=== PATIENT | female | born 1940 | race Caucasian/White ===

== ENCOUNTER 2018-01-29 13:52 | Inpatient (IN) | payer MEDICARE, BC, SELFPAY ==
[2018-01-29 13:36] VITALS: BP 116/82; PULSE 84; RESP 22; TEMP 36.3; O2SAT 94; BMI 17.7
--- NOTE | 2018-01-29 13:38 | HMH.EDFALL ---
ED Disposition Clinical Impression: Urinary tract infection with pyuria, Elevated lactic acid level Fall Qualifiers: Encounter type: initial encounter Qualified Code(s): W19.XXXA - Unspecified fall, initial encounter Elevated white blood cell count Qualifiers: Leukocytosis type: other Qualified Code(s): D72.828 - Other elevated white blood cell count Disposition: Admitted as Observation Condition on Discharge: Fair - Critical Care Critical Care Time: Yes Attestation: On , the high probability of a clinically significant, sudden or life threatening deterioration of the following system(s) required my full and direct attention, intervention and personal management. The time I documented below is in addition to time spent performing reported procedures but includes the following listed in this critical care notation. Total Critical Care Time: 30 Vital system(s) involved:: Shock (Septic) My critical care processes included: Assessment & monitoring of V/S, Initial and Re-exams, Data Review/Interpretation, Coordinating Care, Medication Orders and management, Documentation Medical Decision Making - Medical Records Medical records reviewed: Yes: I reviewed the patient's medical records. - Dario Inquiry Pt receiving controlled substance: No Vital Signs: 01/29/18 13:36 Temperature 97.3 F L Temperature Source Temporal Artery Scan Pulse Rate [Left Brachial] 84 Respiratory Rate 22 Blood Pressure [Left Arm] 116/82 Blood Pressure Mean [Left Arm] 93 Blood Pressure Source [Left Arm] Automatic Cuff Blood Pressure Position [Left Arm] Supine 02 Sat by Pulse Oximetry 94 L Oxygen Delivery Method Room Air - Lab Data Lab results reviewed: Yes: I reviewed the patient's lab results. Lab Results 01/29/18 14:55: WBC 21.7 H*, RBC 4.53, Hgb 14.1, Hct 45.8, MCV 101.0 H, MCH 31.1, MCHC 30.8 L, RDW 12.7, Plt Count 205, MPV 11.0 H, Neut % (Auto) 88.3 H, Lymph % (Auto) 6.7 L, [place] % (Auto) 4.3, Eos % (Auto) 0.6, Baso % (Auto) 0.1, Neut # (Auto) 19.1 H, Lymph # (Auto) 1.5, [place] # (Auto) 0.9, Eos # (Auto) 0.1, Baso # (Auto) 0.0, Total Counted 100, Neutrophils % (Manual) 90 H, Lymphocytes % (Manual) 5 L, Atypical Lymphs % 2.0, Monocytes % (Manual) 3, Platelet Estimate Normal, RBC Morphology Normal 01/29/18 14:55: Sodium 163 H*, Potassium 3.4 L, Chloride 125 H, Carbon Dioxide 29, Anion Gap 12.4, BUN 50 H, Creatinine 1.39 H, Estimated Creat Clear 26, Estimated GFR 37 L, Est GFR ( Amer) 44 L, Glucose 201 H, Calcium 10.0, Total Bilirubin 0.4, AST 24, ALT 48, Alkaline Phosphatase 104, Troponin I 0.02, Total Protein 7.9, Albumin 2.9 L, Globulin 5.0 H, Albumin/Globulin Ratio 0.6 L 01/29/18 15:35: Lactic Acid 3.4 H 01/29/18 15:35: Influenza Type A Ag Negative, Influenza Type B Ag Negative, Group A Strep Rapid Negative 01/29/18 16:10: Urine Color Yellow, Urine Appearance Turbid, Urine pH 5.5, Ur Specific [place] 1.025, Urine Protein Trace, Urine Glucose (UA) Negative, Urine Ketones Negative, Urine Blood Trace-i, Urine Nitrate Negative, Urine Bilirubin Negative, Urine Urobilinogen 0.2, Ur Leukocyte Esterase 1+ A, Urine RBC Occasional, Urine WBC 20-50, Ur Squamous Epith Cells Occasional, Urine Bacteria 4+ Result diagrams: 01/29/18 14:55 01/29/18 14:55 Orders (Tests/Meds): ED MEDICATIONS Generic Name Dose Route Start Last Admin Trade Name Freq PRN Reason Stop Dose Admin Ceftriaxone Sodium 1 gm/ 50 mls @ 100 mls/hr 01/29/18 16:15 01/29/18 16:19 Sodium Chloride IV 02/12/18 16:14 100 mls/hr Q24H SHERRI Administration Protocol Discontinued Medications Generic Name Dose Route Start Last Admin Trade Name Freq PRN Reason Stop Dose Admin Ceftriaxone Sodium 1 gm/ 50 mls @ 100 mls/hr 01/29/18 16:01 Sodium Chloride IV 01/29/18 16:30 ONCE ONE Protocol Lorazepam 0.5 mg 01/29/18 14:04 01/29/18 14:22 Ativan 2mg/Ml Vial IM 01/29/18 14:05 0.5 mg ONCE ONE Administration ORDERS Category Date
[2018-01-29 13:41] VITALS: BMI 17.8
--- NOTE | 2018-01-29 13:42 | CT_ITS ---
CT cervical spine wo con INDICATION: Neck pain following injury, posttraumatic pain ITS.REASON: fall ORDERING PHYSICIAN: Eulalia Contreras MD PATIENT AGE: 77 years COMPARISON: None TECHNIQUE: Axial images are obtained without contrast. Sagittal and coronal reformatted images are reviewed as well. All CT scans at the facility use one or more dose reduction, viz: automated exposure control; ma/kV adjustment per patient size (including targeted exams where dose is matched to indication; i.e. head); or iterative reconstruction technique. FINDINGS: Motion artifact obscures fine detail. Motion artifact is present despite repeating the exam. There is normal alignment. No displaced fractures or dislocation evident. Multilevel cervical spondylosis with degenerative disc disease and facet arthritic changes are present. Moderate facet hypertrophic changes are present on the left at C3-C4. There is 3 mm anterolisthesis of C3. Facet arthritic changes at C4-C5 greater on the left at C5-C6 greater on the left with bilateral foraminal narrowing at C5-C6. Endplate osteophytes with disc space narrowing and foraminal narrowing present at C6-C7 with bony canal narrowing as well with broad-based origin disc osteophyte complex. Lung apices are clear. No prevertebral soft tissue swelling. There is fluid level in the left maxillary sinus IMPRESSION: The exam is limited by motion artifact. Multilevel cervical spondylosis. Please see above for detailed description at each level. No definite acute fracture apparent
--- NOTE | 2018-01-29 13:42 | ED_ITS ---
ED Disposition Clinical Impression: Urinary tract infection with pyuria, Elevated lactic acid level Fall Qualifiers: Encounter type: initial encounter Qualified Code(s): W19.XXXA - Unspecified fall, initial encounter Elevated white blood cell count Qualifiers: Leukocytosis type: other Qualified Code(s): D72.828 - Other elevated white blood cell count Disposition: Admitted as Observation Condition on Discharge: Fair - Critical Care Critical Care Time: Yes Attestation: On , the high probability of a clinically significant, sudden or life threatening deterioration of the following system(s) required my full and direct attention, intervention and personal management. The time I documented below is in addition to time spent performing reported procedures but includes the following listed in this critical care notation. Total Critical Care Time: 30 Vital system(s) involved:: Shock (Septic) My critical care processes included: Assessment & monitoring of V/S, Initial and Re-exams, Data Review/Interpretation, Coordinating Care, Medication Orders and management, Documentation Medical Decision Making - Medical Records Medical records reviewed: Yes: I reviewed the patient's medical records. - Dario Inquiry Pt receiving controlled substance: No Vital Signs: 01/29/18 13:36 Temperature 97.3 F L Temperature Source Temporal Artery Scan Pulse Rate [Left Brachial] 84 Respiratory Rate 22 Blood Pressure [Left Arm] 116/82 Blood Pressure Mean [Left Arm] 93 Blood Pressure Source [Left Arm] Automatic Cuff Blood Pressure Position [Left Arm] Supine 02 Sat by Pulse Oximetry 94 L Oxygen Delivery Method Room Air - Lab Data Lab results reviewed: Yes: I reviewed the patient's lab results. Lab Results 01/29/18 14:55: WBC 21.7 H*, RBC 4.53, Hgb 14.1, Hct 45.8, MCV 101.0 H, MCH 31.1 , MCHC 30.8 L, RDW 12.7, Plt Count 205, MPV 11.0 H, Neut % (Auto) 88.3 H, Lymph % (Auto) 6.7 L, [place] % (Auto) 4.3, Eos % (Auto) 0.6, Baso % (Auto) 0.1, Neut # ( Auto) 19.1 H, Lymph # (Auto) 1.5, [place] # (Auto) 0.9, Eos # (Auto) 0.1, Baso # ( Auto) 0.0, Total Counted 100, Neutrophils % (Manual) 90 H, Lymphocytes % (Manual ) 5 L, Atypical Lymphs % 2.0, Monocytes % (Manual) 3, Platelet Estimate Normal, RBC Morphology Normal 01/29/18 14:55: Sodium 163 H*, Potassium 3.4 L, Chloride 125 H, Carbon Dioxide 29, Anion Gap 12.4, BUN 50 H, Creatinine 1.39 H, Estimated Creat Clear 26, Estimated GFR 37 L, Est GFR ( Amer) 44 L, Glucose 201 H, Calcium 10.0, Total Bilirubin 0.4, AST 24, ALT 48, Alkaline Phosphatase 104, Troponin I 0.02, Total Protein 7.9, Albumin 2.9 L, Globulin 5.0 H, Albumin/Globulin Ratio 0.6 L 01/29/18 15:35: Lactic Acid 3.4 H 01/29/18 15:35: Influenza Type A Ag Negative, Influenza Type B Ag Negative, Group A Strep Rapid Negative 01/29/18 16:10: Urine Color Yellow, Urine Appearance Turbid, Urine pH 5.5, Ur Specific [place] 1.025, Urine Protein Trace, Urine Glucose (UA) Negative, Urine Ketones Negative, Urine Blood Trace-i, Urine Nitrate Negative, Urine Bilirubin Negative, Urine Urobilinogen 0.2, Ur Leukocyte Esterase 1+ A, Urine RBC Occasional, Urine WBC 20-50, Ur Squamous Epith Cells Occasional, Urine Bacteria 4+ Result diagrams: 01/29/18 14:55 01/29/18 14:55 Orders (Tests/Meds): ED MEDICATIONS Generic Name Dose Route Start Last Admin Trade Name Freq PRN Reason Stop Dose Admin Ceftriaxone Sodium 1 gm/ 50 mls @ 100 mls/hr 01/29/18 16:15 01/29/18 16:19 S
--- NOTE | 2018-01-29 13:42 | CT_ITS ---
CT head/brain wo con HISTORY: ITS.REASON: fall ORDERING PHYSICIAN: Eulalia Contreras MD PATIENT AGE: 77 years COMPARISON: None TECHNIQUE: Helical acquisition was obtained as patient could not hold still for regular axial images. Axial images obtained without contrast. Brain and bone windows reviewed. All CT scans at the facility use one or more dose reduction, viz: automated exposure control; ma/kV adjustment per patient size (including targeted exams where dose is matched to indication; i.e. head); or iterative reconstruction technique. FINDINGS: No midline shift, mass effect, intracranial hemorrhage, hydrocephalus, or extra-axial fluid collection is evident. There is generalized atrophy. Periventricular ischemic gliotic changes noted. There is a lacunar infarction of the subinsular region on the left. The calvarium has an unremarkable appearance. No mastoid effusion. Mucosal thickening involves the ethmoid sinuses sphenoid sinus and maxillary sinuses. IMPRESSION: 1. No acute intracranial findings. 2. Limited exam secondary to motion artifact. 3. Sinus disease.
--- NOTE | 2018-01-29 13:44 | XR_ITS ---
XR chest AP HISTORY: Pain following injury ITS.REASON: fall ORDERING PHYSICIAN: Eulalia Contreras MD FINDINGS: Unremarkable heart size. Coronary artery calcifications are present.. Right hemidiaphragm is elevated with bowel interposition on the right. Lungs are clear bilaterally. No acute bony anomalies. IMPRESSION: No acute finding
[2018-01-29 15:05] LABS: Basophils % 0.1 % (0.1-2.0); Eosinophils # 0.1 K/mm3 (0.0-0.4); Eosinophils % 0.6 % (0.1-12.0); Hematocrit 45.8 % (37.0-47.0); Hemoglobin 14.1 g/dL (12.2-16.2); Lymphocytes # 1.5 K/mm3 (0.7-4.5); Lymphocytes % 6.7 K/mm3 (10-50); Mean Corpuscular HGB Conc 30.8 g/dL (31.8-35.4); Mean Corpuscular Hemoglobin 31.1 pg (27.0-31.2); Monocytes # 0.9 K/mm3 (0.1-1.0); Monocytes % 4.3 % (1.7-9.3); Neutrophils # 19.1 K/mm3 (1.8-7.8); Neutrophils % 88.3 % (37.0-80.0); Platelet Count 205 K/mm3 (142-424); Red Blood Count 4.53 M/mm3 (4.20-5.40); Red Cell Distribution Width 12.7 % (11.5-17.5); White Blood Count 21.7 K/mm3 (4.8-10.8)
[2018-01-29 15:06] LABS: MANUAL DIFFERENTIAL MANUAL DIFFERENTIAL (MANUAL DIFF)
[2018-01-29 15:17] LABS: Alanine Aminotransferase 48 U/L (12-78); Albumin Level 2.9 gm/dL (3.4-5.0); Albumin/Globulin Ratio 0.6 (1.1-1.8); Alkaline Phosphatase 104 U/L (46-116); Anion Gap 12.4 mEq/L (5-15); Aspartate Amino Transferase 24 U/L (15-37); Bilirubin,Total 0.4 mg/dL (0.2-1.0); Blood Urea Nitrogen 50 mg/dL (7-18); Carbon Dioxide 29 mmol/L (21.0-32.0); Chloride 125 mmol/L (98-107); Creatinine Clearance Estimated 26 mL/min (0-300); Creatinine,Serum 1.39 mg/dL (0.55-1.02); Estimated Glomerular Filt Rate 37 ml/min (>60); GFR (African American) 44 ML/MIN (>60); Glucose 201 mg/dL (74-106); Potassium 3.4 mmoL/L (3.5-5.1); Total Protein,Serum 7.9 gm/dL (6.4-8.2); Troponin I 0.02 ng/ml (0.00-0.06)
[2018-01-29 15:20] LABS: Lymphocytes % 5 % (10-50); Monocytes % 3 % (2-9); Neutrophils % 90 % (42-76); Platelet Estimate Normal; RBC Morphology Normal; Total Cells Counted 100
[2018-01-29 15:21] LABS: Sodium 163 mmol/L (136-145)
[2018-01-29 15:47] LABS: Strep Scrn Group A (Rapid) Negative (Negative)
[2018-01-29 15:53] LABS: Lactic Acid 3.4 mmol/L (0.4-2.0); Reflex Lactic Add Lactic Reflex
[2018-01-29 16:16] LABS: Microscopic, Urine URINE MICROSCOPIC (MICROSCOPIC)
[2018-01-29 16:18] LABS: Appearance,Urine TURBID (Clear); Bilirubin,Urine Negative (Negative); Blood, Urine TRACE-I (Negative); Color,Urine YELLOW (Yellow); Glucose,Urine (UA) Negative (Negative); Ketones,Urine Negative (Negative); Leukocyte Esterase,Urine 1+ (Negative); Nitrate,Urine Negative (Negative); PH,Urine 5.5 (5.0-8.5); Protein,Urine TRACE (Negative); Specific Gravity, Urine 1.025 (1.005-1.030); Urobilinogen,Urine 0.2 EU/dl (0.2)
[2018-01-29 16:26] LABS: Bacteria,Urine 4+ /lpf; RBC,Urine Occasional #/hpf (0-3); Squamous Epithelial Cell,Urine Occasional #/hpf (0-5); WBC,Urine 20-50 #/hpf (0-3)
[2018-01-29 17:26] VITALS: BMI 22.6
[2018-01-29 17:30] VITALS: BP 115/55; PULSE 89; RESP 22; TEMP 36.6; O2SAT 96
[2018-01-29 17:43] VITALS: BP 134/74; PULSE 106; RESP 20; TEMP 36.8; O2SAT 97
[2018-01-29 17:51] VITALS: O2SAT 96
[2018-01-29 20:00] VITALS: BP 116/64; PULSE 99; RESP 18; TEMP 36.4; O2SAT 97
[2018-01-29 20:10] LABS: Lactic Acid Follow Up (RFLX 1) 2.5 (0.4-2.0)
[2018-01-29 21:51] LABS: Reflex Lactic (2 hrs) Add Lactic Reflex
[2018-01-29 22:21] LABS: Lactic Acid Follow up (RFLX 2) 2.7 (0.4-2.0)
--- NOTE | 2018-01-29 23:28 | PC.NURSE ---
Spoke with staff at [place] [facility] concerning pt's adl's. 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 If care is explained as given and told what is going on pt will respond better. Our staff has been made aware.
--- NOTE | 2018-01-30 03:49 | PC.NURSE ---
Pt can be aggressive if surprised or if care is not explained. Dr Murillo ordered ns at 50ml/hr in earlier shift. F/C patent and draining. Pt rested well following bath with nothing acute to report.
[2018-01-30 04:00] VITALS: BP 114/87; PULSE 87; RESP 16; TEMP 36.6; O2SAT 95
[2018-01-30 06:14] LABS: Basophils % 0.2 % (0.1-2.0); Eosinophils % 0.1 % (0.1-12.0); Hemoglobin 14.8 g/dL (12.2-16.2); Lymphocytes # 1.6 K/mm3 (0.7-4.5); Lymphocytes % 10.1 K/mm3 (10-50); Mean Corpuscular HGB Conc 30.9 g/dL (31.8-35.4); Mean Corpuscular Hemoglobin 31.6 pg (27.0-31.2); Mean Corpuscular Volume 102.4 fl (81-99); Mean Platelet Volume 11.9 fl (7.4-10.4); Monocytes # 1.1 K/mm3 (0.1-1.0); Neutrophils # 12.7 K/mm3 (1.8-7.8); Neutrophils % 82.6 % (37.0-80.0); Platelet Count 154 K/mm3 (142-424); Red Blood Count 4.68 M/mm3 (4.20-5.40); Red Cell Distribution Width 12.8 % (11.5-17.5); White Blood Count 15.4 K/mm3 (4.8-10.8)
[2018-01-30 06:20] LABS: MANUAL DIFFERENTIAL MANUAL DIFFERENTIAL (MANUAL DIFF)
[2018-01-30 06:28] LABS: Alanine Aminotransferase 43 U/L (12-78); Albumin Level 2.9 gm/dL (3.4-5.0); Albumin/Globulin Ratio 0.6 (1.1-1.8); Alkaline Phosphatase 102 U/L (46-116); Aspartate Amino Transferase 33 U/L (15-37); Bilirubin,Total 0.3 mg/dL (0.2-1.0); Blood Urea Nitrogen 48 mg/dL (7-18); Calcium 9.6 mg/dL (8.5-10.1); Carbon Dioxide 30 mmol/L (21.0-32.0); Globulin 4.8 gm/dl (1.3-3.2); Potassium 3.7 mmoL/L (3.5-5.1); Total Protein,Serum 7.7 gm/dL (6.4-8.2)
[2018-01-30 06:34] LABS: Creatinine Clearance Estimated 35 mL/min (0-300); Creatinine,Serum 1.14 mg/dL (0.55-1.02); Estimated Glomerular Filt Rate 46 ml/min (>60); GFR (African American) 56 ML/MIN (>60)
[2018-01-30 06:42] LABS: Anion Gap 12.7 mEq/L (5-15); Sodium 167 mmol/L (136-145)
[2018-01-30 06:43] LABS: Chloride 128 mmol/L (98-107)
[2018-01-30 06:44] LABS: Glucose 127 mg/dL (74-106)
[2018-01-30 06:49] LABS: Lymphocytes % 10 % (10-50); Monocytes % 3 % (2-9); Neutrophils % 77 % (42-76); Total Cells Counted 100
[2018-01-30 06:50] LABS: Hypersegmented Neutrophils 1+; Hypochromasia 2+; Macrocytosis 2+; Platelet Estimate Normal; Rouleaux 1+
--- NOTE | 2018-01-30 07:07 | PC.NURSE ---
Shift report given to Raulito More RN leaving pt safe and stable.
[2018-01-30 07:43] VITALS: BP 142/89; PULSE 87; RESP 18; TEMP 37.2; O2SAT 99
[2018-01-30 08:00] VITALS: O2SAT 94
--- NOTE | 2018-01-30 08:09 | HMH.HP ---
*Admission Date: 01/29/18 *Chief complaint: Lethargy/mental status change *History of present illness: 77-year-old white female, long-term resident of local [facility] who was brought to the emergency department with lethargy, mental status changes and had a fall at the long term where she apparently rolled out of bed. In the emergency department workup revealed unremarkable CT scan for age, leukocytosis, evidence of urinary tract infection and significant hyponatremia. She is admitted to hospital for IV antibiotics, correction of her hyponatremia and ongoing supportive care. Please note she is maintained a DNR status for many years. She suffers from severe dementia. [facility] History I have reviewed the patient's past medical history: Yes Medical History: Reports:: Dementia, Hyperlipidemia, Hypertension, Myocardial Infarction, Peripheral Vascular Disease Denies:: Diabetes Mellitus Type 1, Diabetes Mellitus Type 2 Other Medical History: Reports: Hypothyroidism - *Social History Smoking Status: Never smoker Alcohol Intake: never Occupational Status: retired - Psychiatric History Expresses thoughts of harming self/others: None Suicide Plan Description: No Plan Review of Systems - Review of Systems Review of systems:: unable to obtain Meds Home Medications Medication Instructions Recorded Confirmed Type Bisacodyl [Dulcolax 5mg Tablet] 2 tab PO HS 01/29/18 01/29/18 History Citalopram Hydrobromide [Celexa 1 tab PO DAILY 01/29/18 01/29/18 History 20mg Tablet] Levothyroxine Sodium 150 mcg PO DAILY 01/29/18 01/29/18 History [Levothyroxine 150mcg (0.15mg) Tab] Metoprolol Tartrate [Lopressor 12.5 mg PO BID 01/29/18 01/29/18 History 25mg tablet] Polyethylene Glycol 1000 500 gm MC DAILY 01/29/18 01/29/18 History [Polyethylene Glycol] Quetiapine Fumarate [Quetiapine 25 mg PO DAILY 01/29/18 01/29/18 History Fumarate] Quetiapine Fumarate [Quetiapine 50 mg PO HS 01/29/18 01/29/18 History Fumarate] Sennosides [Senokot 8.6mg tablet] 8.6 mg PO DAILY 01/29/18 01/29/18 History Tramadol HCl [Ultram 50mg 50 mg PO TID 03/24/18 03/24/18 History tablet] Trazodone HCl 50 mg PO HS 01/29/18 01/29/18 History Allergies Allergy/AdvReac Type Severity Reaction Status Date / Time codeine Allergy Verified 01/29/18 13:39 lovastatin Allergy Verified 01/29/18 13:39 naproxen Allergy Verified 01/29/18 13:39 Exam Vital signs and Labs for Last 24 Hours: Temp Pulse Resp BP Pulse Ox 98.9 F 87 18 142/89 99 01/30/18 07:43 01/30/18 07:43 01/30/18 07:43 01/30/18 07:43 01/30/18 07:43 Laboratory Results - last 24 hr 01/29/18 19:50: Lactic Acid Fup @ 4Hr 2.5 H 01/29/18 21:50: Lactic Acid Fup @ 2Hr 2.7 H 01/30/18 05:45: WBC 15.4 H D, RBC 4.68, Hgb 14.8, Hct 48.0 H, MCV 102.4 H, MCH 31.6 H, MCHC 30.9 L, RDW 12.8, Plt Count 154, MPV 11.9 H, Neut % (Auto) 82.6 H, Lymph % (Auto) 10.1, [place] % (Auto) 7.0, Eos % (Auto) 0.1, Baso % (Auto) 0.2, Neut # (Auto) 12.7 H, Lymph # (Auto) 1.6, [place] # (Auto) 1.1 H, Eos # (Auto) 0.0, Baso # (Auto) 0.0, Total Counted 100, Neutrophils % (Manual) 77 H, Band Neutrophils % 10.0 H, Lymphocytes % (Manual) 10, Monocytes % (Manual) 3, Hypersegmented Neuts 1+, Platelet Estimate Normal, Hypochromasia 2+, Macrocytosis 2+, [place]leaux 1+ 01/30/18 05:45: Sodium 167 H*, Potassium 3.7, Chloride 128 H, Carbon Dioxide 30, Anion Gap 12.7, BUN 48 H, Creatinine 1.14 H, Estimated Creat Clear 35, Estimated GFR 46 L, Est GFR ( Amer) 56 L D, Glucose 127 H D, Calcium 9.6, Total Bilirubin 0.3, AST 33 D, ALT 43, Alkaline Phosphatase 102, Total Protein 7.7, Albumin 2.9 L, Globulin 4.8 H, Albumin/Globulin Ratio 0.6 L I & O for Last 24 hours: Intake & Output 01/27/18 01/28/18 01/29/18 01/30/18 11:59 11:59 11:59 11:59 Intake Total 371 / 371 Output Total 300 / 300 Balance 71 / 71 Narrative: Patient is obtunded. Difficult to arouse. Responds marginally to painful stimul
--- NOTE | 2018-01-30 08:12 | P.HP_ITS ---
*Admission Date: 01/29/18 *Chief complaint: Lethargy/mental status change *History of present illness: 77-year-old white female, long-term resident of local [facility] who was brought to the emergency department with lethargy, mental status changes and had a fall at the [facility] where she apparently rolled out of bed. In the emergency department workup revealed unremarkable CT scan for age, leukocytosis, evidence of urinary tract infection and significant hyponatremia. She is admitted to hospital for IV antibiotics, correction of her hyponatremia and ongoing supportive care. Please note she is maintained a DNR status for many years. She suffers from severe dementia. [facility] History I have reviewed the patient's past medical history: Yes Medical History: Reports:: Dementia, Hyperlipidemia, Hypertension, Myocardial Infarction, Peripheral Vascular Disease Denies:: Diabetes Mellitus Type 1, Diabetes Mellitus Type 2 Other Medical History: Reports: Hypothyroidism - *Social History Smoking Status: Never smoker Alcohol Intake: never Occupational Status: retired - Psychiatric History Expresses thoughts of harming self/others: None Suicide Plan Description: No Plan Review of Systems - Review of Systems Review of systems:: unable to obtain Meds Home Medications Medication Instructions Recorded Confirmed Type Bisacodyl [Dulcolax 5mg Tablet] 2 tab PO HS 01/29/18 01/29/18 History Citalopram Hydrobromide [Celexa 1 tab PO DAILY 01/29/18 01/29/18 History 20mg Tablet] Levothyroxine Sodium 150 mcg PO DAILY 01/29/18 01/29/18 History [Levothyroxine 150mcg (0.15mg) Tab] Metoprolol Tartrate [Lopressor 12.5 mg PO BID 01/29/18 01/29/18 History 25mg tablet] Polyethylene Glycol 1000 500 gm MC DAILY 01/29/18 01/29/18 History [Polyethylene Glycol] Quetiapine Fumarate [Quetiapine 25 mg PO DAILY 01/29/18 01/29/18 History Fumarate] Quetiapine Fumarate [Quetiapine 50 mg PO HS 01/29/18 01/29/18 History Fumarate] Sennosides [Senokot 8.6mg tablet] 8.6 mg PO DAILY 01/29/18 01/29/18 History Tramadol HCl [Ultram 50mg 50 mg PO TID 03/24/18 03/24/18 History tablet] Trazodone HCl 50 mg PO HS 01/29/18 01/29/18 History Allergies Allergy/AdvReac Type Severity Reaction Status Date / Time codeine Allergy Verified 01/29/18 13:39 lovastatin Allergy Verified 01/29/18 13:39 naproxen Allergy Verified 01/29/18 13:39 Exam Vital signs and Labs for Last 24 Hours: Temp Pulse Resp BP Pulse Ox 98.9 F 87 18 142/89 99 01/30/18 07:43 01/30/18 07:43 01/30/18 07:43 01/30/18 07:43 01/30/18 07:43 Laboratory Results - last 24 hr 01/29/18 19:50: Lactic Acid Fup @ 4Hr 2.5 H 01/29/18 21:50: Lactic Acid Fup @ 2Hr 2.7 H 01/30/18 05:45: WBC 15.4 H D, RBC 4.68, Hgb 14.8, Hct 48.0 H, MCV 102.4 H, MCH 31.6 H, MCHC 30.9 L, RDW 12.8, Plt Count 154, MPV 11.9 H, Neut % (Auto) 82.6 H, Lymph % (Auto) 10.1, [place] % (Auto) 7.0, Eos % (Auto) 0.1, Baso % (Auto) 0.2, Neut # (Auto) 12.7 H, Lymph # (Auto) 1.6, [place] # (Auto) 1.1 H, Eos # (Auto) 0.0 , Baso # (Auto) 0.0, Total Counted 100, Neutrophils % (Manual) 77 H, Band Neutrophils % 10.0 H, Lymphocytes % (Manual) 10, Monocytes % (Manual) 3, Hypersegmented Neuts 1+, Platelet Estimate Normal, Hypochromasia 2+, Macrocytosis 2+, [place]le[place] 1+ 01/30/18 05:45: Sodium 167 H*, Potassium 3.7, Chloride 128 H, Carbon Dioxide 30 , Anion Gap 12.7, BUN 48
--- NOTE | 2018-01-30 08:49 | HMH.PHAVTE ---
[facility] Pharmacy VTE Monitoring - Patient Demographics Admission date: 01/29/18 Report Date: 01/30/18 Time: 08:49 Allergies/Adverse Reactions: Patient Allergies codeine Allergy (Verified 01/29/18 13:39) lovastatin Allergy (Verified 01/29/18 13:39) naproxen Allergy (Verified 01/29/18 13:39) Height: 1.57 m Weight: 56.019 kg Patient Problems: Current Active Problems Fall (Acute) Urinary tract infection with pyuria (Acute) Elevated lactic acid level (Acute) Elevated white blood cell count (Acute) Hypernatremia (Acute) - VTE Risk Labs: VTE Related Lab Results Hgb 14.8 g/dL (12.2-16.2) 01/30/18 05:45 Hct 48.0 % (37.0-47.0) H 01/30/18 05:45 Plt Count 154 K/mm3 (142-424) 01/30/18 05:45 BUN 48 mg/dL (7-18) H 01/30/18 05:45 Creatinine 1.14 mg/dL (0.55-1.02) H 01/30/18 05:45 Estimated Creat Clear 35 mL/min (0-300) 01/30/18 05:45 Was VTE Risk Assessment Performed: Yes VTE Score: 3 VTE Risk Level: Low Risk - Prophylaxis VTE Prophylaxis Ordered?: Yes Types of VTE Prophylaxis: TEDS Knee High Location of Applied Device: Bilateral Lower Extremeties - VTE Diagnosis Confirmed Treatment or plan recommended: Continue Current Treatment
[2018-01-30 15:38] VITALS: BP 138/71; PULSE 68; RESP 16; TEMP 36.4; O2SAT 95
[2018-01-30 20:00] VITALS: BP 118/86; PULSE 84; RESP 18; TEMP 37.1; O2SAT 93
[2018-01-31 04:00] VITALS: BP 123/84; PULSE 91; RESP 16; TEMP 36.4; O2SAT 97
--- NOTE | 2018-01-31 04:42 | PC.NURSE ---
Able to get pt to eat a whole popsicle during med pass. Pt slept well with no aggression toward staff. IV infusing well with no problems. Nothing acute to report and she remained safe this shift.
[2018-01-31 06:36] LABS: Basophils % 0.3 % (0.1-2.0); Eosinophils # 0.1 K/mm3 (0.0-0.4); Eosinophils % 0.8 % (0.1-12.0); Hematocrit 44.2 % (37.0-47.0); Hemoglobin 13.7 g/dL (12.2-16.2); Lymphocytes # 1.5 K/mm3 (0.7-4.5); Lymphocytes % 13.6 K/mm3 (10-50); Mean Corpuscular HGB Conc 30.9 g/dL (31.8-35.4); Mean Corpuscular Volume 100.4 fl (81-99); Mean Platelet Volume 11.4 fl (7.4-10.4); Monocytes # 0.7 K/mm3 (0.1-1.0); Monocytes % 6.7 % (1.7-9.3); Neutrophils # 8.5 K/mm3 (1.8-7.8); Neutrophils % 78.5 % (37.0-80.0); Platelet Count 192 K/mm3 (142-424); Red Cell Distribution Width 12.8 % (11.5-17.5); White Blood Count 10.8 K/mm3 (4.8-10.8)
[2018-01-31 07:02] LABS: Blood Urea Nitrogen 42 mg/dL (7-18); Carbon Dioxide 29 mmol/L (21.0-32.0); Creatinine Clearance Estimated 37 mL/min (0-300); Creatinine,Serum 1.08 mg/dL (0.55-1.02); Estimated Glomerular Filt Rate 49 ml/min (>60); GFR (African American) 59 ML/MIN (>60); Glucose 103 mg/dL (74-106); Potassium 3.3 mmoL/L (3.5-5.1)
[2018-01-31 07:07] LABS: Anion Gap 11.3 mEq/L (5-15)
[2018-01-31 07:09] LABS: Chloride 133 mmol/L (98-107); Sodium 170 mmol/L (136-145)
--- NOTE | 2018-01-31 07:12 | PC.NURSE ---
Bedside shift report given to Dara Bloom RN leaving pt safe and stable.
--- NOTE | 2018-01-31 07:36 | PC.NURSE ---
Received report from Doris Dugan RN
[2018-01-31 07:42] VITALS: BP 119/77; PULSE 86; RESP 16; TEMP 37.1; O2SAT 96
[2018-01-31 08:00] VITALS: RESP 16; O2SAT 96
--- NOTE | 2018-01-31 08:19 | P.PN_ITS ---
Internal Medicine - PN: Subj *Date: 01/31/18 *Time: 08:18 Interval history: Overnight patient became agitated, her regular antipsychotics were started this improved her situation. This morning she is awake, responsive to verbal commands, disoriented. Nursing staff reports some choking with thin liquids. Exam Vital signs and Labs for Last 24 Hours: Temp Pulse Resp BP Pulse Ox 98.8 F 86 16 119/77 96 01/31/18 07:42 01/31/18 07:42 01/31/18 07:42 01/31/18 07:42 01/31/18 07:42 Laboratory Results - last 24 hr 01/31/18 06:05: WBC 10.8 D, RBC 4.40, Hgb 13.7, Hct 44.2, MCV 100.4 H, MCH 31.0 , MCHC 30.9 L, RDW 12.8, Plt Count 192, MPV 11.4 H, Neut % (Auto) 78.5, Lymph % (Auto) 13.6, [place] % (Auto) 6.7, Eos % (Auto) 0.8, Baso % (Auto) 0.3, Neut # ( Auto) 8.5 H, Lymph # (Auto) 1.5, [place] # (Auto) 0.7, Eos # (Auto) 0.1, Baso # ( Auto) 0.0 01/31/18 06:05: Sodium 170 H*, Potassium 3.3 L, Chloride 133 H, Carbon Dioxide 29, Anion Gap 11.3, BUN 42 H, Creatinine 1.08 H, Estimated Creat Clear 37, Estimated GFR 49 L, Est GFR ( Amer) 59, Glucose 103 I & O for Last 24 hours: Intake & Output 01/28/18 01/29/18 01/30/18 01/31/18 11:59 11:59 11:59 11:59 Intake Total 371 / 371 1130 / 1130 Output Total 300 / 300 550 / 550 Balance 71 / 71 580 / 580 Weight 123 lb 8 oz Narrative: Patient is awake, somewhat responsive, lungs are clear, heart rate regular, abdomen soft, she still appears clinically dehydrated. Sodium level noted at 170. Assessment and Plan (1) Hypernatremia Current visit: Yes Status: Acute Category: Medical Code(s): E87.0 - Hyperosmolality and hypernatremia (2) Fall Current visit: Yes Status: Acute Qualifiers: Encounter type: initial encounter Qualified Code(s): W19.XXXA - Unspecified fall, initial encounter Category: Medical Code(s): W19.XXXA - Unspecified fall, initial encounter (3) Urinary tract infection with pyuria Current visit: Yes Status: Acute Category: Medical Code(s): N39.0 - Urinary tract infection, site not specified - Assessment and plan all Dx Assessment and Plan for all problems:: Continue antibiotic for UTI. Await culture results. Increase normal saline infusion rate given her dehydration with hypernatremia. Swallowing evaluation through speech therapy. Continue her baseline antipsychotic therapy.
--- NOTE | 2018-01-31 10:13 | HMH.SLDYSPHA ---
Speech & Language Evaluation Speech/Language Dysphagia Evaluation Start: 01/31/18 09:57 Freq: ONCE Status: Active Protocol: Document 01/31/18 09:57 [email or web address] (Rec: 01/31/18 10:13 JOELLEN [id number]) Dysphagia Assess/Goals/Plan Assessment Date of Evaluation: 01/31/18 Evaluation Type Initial Certification Assessment/Problems RN noted coughing with thin liquids, tired nectar thickened liquids. Does Patient Qualify for Service No Qualify/Failure Comment Ms. Chen was able to drink honey thickened liquids from open cup with assistance and eat puree food. She was unable to follow directions. Recommendations PHYSICIAN CERTIFICATION: The specified therapy services are required, authorized, and reviewed every 30 days. Diet Recommendations Dysphagia Pureed Liquid Type Recommendations Honey Consistency SL Swallow Guidelines Assist w/all meals Crush Meds Small pills w/applesauce Dysphagia Swallow Precautions/Strategies Sitting Upright (90 deg) Liquids from Cup Plan Pt/Guardian verbally ack understanding No: RN advised of dx/prognosis/goals Pt/Guardian verbally ack understanding No of/consent to tx prog G -code Required Yes G-CODES ST Current Status [id number] ST Current Status Modifier CL-At least 60% but less than 80% impaired, limited or restricted ST Goal Status [id number] ST Goal Status Modifier CL-At least 60% but less than 80% impaired, limited or restricted Education Instructions provided RN consulted and advised to keep Ms. Chen upright 30 minutes after eating/drinking. Speech & Language HPI History Present Illness Description of Patient Problem Ms. Chen' RN reports coughing on thin liquids at breakfast. She thickened liquids to a nectar consistency, but reported that she thought she may do better with honey thick . Ms. Chen was alert and cooperative. She was unable to follow commands and was disoriented during the assessment. Pt/Caregiver Concerns RN reports coughing on thin liquids at breakfast. She reports she too
--- NOTE | 2018-01-31 10:42 | SW/DCPLANNER ---
MS PEREZ PRESENTED INTO THE HOSPITAL WITH A UTI AND WEAKNESS, SHE IS A RESIDENT OF [facility] AND WILL BE RETURNING BACK THERE POST HOSPITAL STAY....DISPOSITION UNCERTAIN BUT SHOULD BE IN THE NEXT DAY OR SO...SHE CURRENTLY IS ON A MEDICAID BEDHOLD BUT IF SHE HAS A REASON TO BE SKILLED THEY WILL SKILL HER UNDER HER MEDICARE A BENEFIT...
[2018-01-31 15:43] VITALS: BMI 22.7
[2018-01-31 15:58] VITALS: BP 131/68; PULSE 78; RESP 18; TEMP 36.6; O2SAT 94
--- NOTE | 2018-01-31 17:13 | PC.NURSE ---
Pt is alert and oriented to self. Pt has not shown any nonverbal s/s of distress/pain. VSS. Afebrile. Lungs CTA. Heart rate reg. Abd soft and nontender /c active BS x4 quads. Anderson to BSD /c clear yellow urine noted in drainage bag. IV NS infusing @ 150ml/hr via (L) AC site. No s/s of infiltration noted. Bilat knee high JEZ hose in place. Bed in low position, call boyle within reach. Will continue to monitor.
--- NOTE | 2018-01-31 19:27 | PC.NURSE ---
report given to stevie
[2018-01-31 19:48] VITALS: BP 143/93; PULSE 89; RESP 18; TEMP 36.9; O2SAT 100
--- NOTE | 2018-02-01 02:23 | PC.NURSE ---
Laying in bed at this time, has been awake intermittently this shift. Talks to self, does not make any sense. Keeps placing legs over the side of bed. Frequent checks to put legs back into bed. Has pulled Swanson catheter out with balloon filled. No blood noted to urszula area. Has been incontinent since swanson has been out. A large amount of urine on disposable chux. Patient refuses placement of new swanson. Will discuss with MD on a.m rounds of plan. Lungs are clear, resp are even and non labored. Skin is warm, pink, dry and intact at this time. Strong pulses, cap refill < 3 sec. No edema. IV is patent and no s/sx of infiltration. Educated patient on using call light, unable to comprehend. Will reinforce teaching. Bed is locked in low position, side rails up x 2. Call light within reach and safety is on. Will continue to monitor.
[2018-02-01 03:44] VITALS: BP 144/67; PULSE 87; RESP 17; TEMP 36.9; O2SAT 95
[2018-02-01 06:24] LABS: Blood Urea Nitrogen 24 mg/dL (7-18); Carbon Dioxide 27 mmol/L (21.0-32.0); Creatinine,Serum 0.85 mg/dL (0.55-1.02)
[2018-02-01 06:25] LABS: Creatinine Clearance Estimated 40 mL/min (0-300); Estimated Glomerular Filt Rate 65 ml/min (>60); GFR (African American) 78 ML/MIN (>60); Glucose 90 mg/dL (74-106)
[2018-02-01 06:38] LABS: Anion Gap 8.8 mEq/L (5-15); Sodium 169 mmol/L (136-145)
[2018-02-01 06:39] LABS: Chloride 136 mmol/L (98-107); Potassium 2.8 mmoL/L (3.5-5.1)
[2018-02-01 06:44] LABS: Basophils % 0.4 % (0.1-2.0); Eosinophils # 0.2 K/mm3 (0.0-0.4); Eosinophils % 1.7 % (0.1-12.0); Hematocrit 41.1 % (37.0-47.0); Hemoglobin 12.6 g/dL (12.2-16.2); Lymphocytes # 1.6 K/mm3 (0.7-4.5); Lymphocytes % 17.1 K/mm3 (10-50); Mean Corpuscular HGB Conc 30.6 g/dL (31.8-35.4); Mean Corpuscular Hemoglobin 31.2 pg (27.0-31.2); Mean Corpuscular Volume 101.8 fl (81-99); Mean Platelet Volume 11.1 fl (7.4-10.4); Monocytes # 0.7 K/mm3 (0.1-1.0); Monocytes % 7.8 % (1.7-9.3); Neutrophils # 6.7 K/mm3 (1.8-7.8); Platelet Count 160 K/mm3 (142-424); Red Blood Count 4.04 M/mm3 (4.20-5.40); Red Cell Distribution Width 12.8 % (11.5-17.5); White Blood Count 9.1 K/mm3 (4.8-10.8)
--- NOTE | 2018-02-01 07:34 | PC.NURSE ---
REPORT GIVEN TO Charlie JOHNSTON W/C
[2018-02-01 07:39] VITALS: BP 125/35; PULSE 75; RESP 18; TEMP 36.4; O2SAT 95
--- NOTE | 2018-02-01 07:41 | PC.NURSE ---
Report received from Gladis Ny RN
--- NOTE | 2018-02-01 08:52 | HMH.ACPN2 ---
Internal Medicine - PN: Subj *Date: 02/01/18 *Time: 07:55 Interval history: Nursing staff report patient pulled swanson catheter out with bulb inflated through the night. She has been trashing about in bed and dislodged her IV, as well. No fevers. Confused at baseline. Rate and rhythm regular. No LE edema. Lung sounds clear and abdomen, Abdomen soft and non-distended Exam Vital signs and Labs for Last 24 Hours: Temp Pulse Resp BP Pulse Ox 97.6 F 75 18 125/35 95 02/01/18 07:39 02/01/18 07:39 02/01/18 07:39 02/01/18 07:39 02/01/18 07:39 Laboratory Results - last 24 hr 02/01/18 06:05: WBC 9.1, RBC 4.04 L, Hgb 12.6, Hct 41.1, MCV 101.8 H, MCH 31.2, MCHC 30.6 L, RDW 12.8, Plt Count 160, MPV 11.1 H, Neut % (Auto) 73.0, Lymph % (Auto) 17.1, [place] % (Auto) 7.8, Eos % (Auto) 1.7, Baso % (Auto) 0.4, Neut # (Auto) 6.7, Lymph # (Auto) 1.6, [place] # (Auto) 0.7, Eos # (Auto) 0.2, Baso # (Auto) 0.0 02/01/18 06:05: Sodium 169 H*, Potassium 2.8 L*, Chloride 136 H, Carbon Dioxide 27, Anion Gap 8.8, BUN 24 H D, Creatinine 0.85 D, Estimated Creat Clear 40, Estimated GFR 65, Est GFR ( Amer) 78 D, Glucose 90 I & O for Last 24 hours: Intake & Output 01/29/18 01/30/18 01/31/18 02/01/18 11:59 11:59 11:59 11:59 Intake Total 371 / 371 1130 / 1130 3603 / 3603 Output Total 300 / 300 550 / 550 575 / 575 Balance 71 / 71 580 / 580 3028 / 3028 Weight 123 lb 8 oz 123 lb 8.012 oz Assessment and Plan (1) Hypernatremia Current visit: Yes Status: Acute Category: Medical Code(s): E87.0 - Hyperosmolality and hypernatremia (2) Fall Current visit: Yes Status: Acute Qualifiers: Encounter type: initial encounter Qualified Code(s): W19.XXXA - Unspecified fall, initial encounter Category: Medical Code(s): W19.XXXA - Unspecified fall, initial encounter (3) Urinary tract infection with pyuria Current visit: Yes Status: Acute Category: Medical Code(s): N39.0 - Urinary tract infection, site not specified - Assessment and plan all Dx Assessment and Plan for all problems:: She remains hypernatremic with sodium 169 this morning. She is also hypokalemic with potassium 2.8. Add 40 MEQ KCL to NS and continue at current rate. Urine culture showed E. Coli sensitive to cephalosporins. Continue rocephin infusions. Recheck bmp in the am
--- NOTE | 2018-02-01 08:58 | P.PN_ITS ---
Internal Medicine - PN: Subj *Date: 02/01/18 *Time: 07:55 Interval history: Nursing staff report patient pulled swanson catheter out with bulb inflated through the night. She has been trashing about in bed and dislodged her IV, as well. No fevers. Confused at baseline. Rate and rhythm regular. No LE edema. Lung sounds clear and abdomen, Abdomen soft and non-distended Exam Vital signs and Labs for Last 24 Hours: Temp Pulse Resp BP Pulse Ox 97.6 F 75 18 125/35 95 02/01/18 07:39 02/01/18 07:39 02/01/18 07:39 02/01/18 07:39 02/01/18 07:39 Laboratory Results - last 24 hr 02/01/18 06:05: WBC 9.1, RBC 4.04 L, Hgb 12.6, Hct 41.1, MCV 101.8 H, MCH 31.2, MCHC 30.6 L, RDW 12.8, Plt Count 160, MPV 11.1 H, Neut % (Auto) 73.0, Lymph % ( Auto) 17.1, [place] % (Auto) 7.8, Eos % (Auto) 1.7, Baso % (Auto) 0.4, Neut # (Auto ) 6.7, Lymph # (Auto) 1.6, [place] # (Auto) 0.7, Eos # (Auto) 0.2, Baso # (Auto) 0.0 02/01/18 06:05: Sodium 169 H*, Potassium 2.8 L*, Chloride 136 H, Carbon Dioxide 27, Anion Gap 8.8, BUN 24 H D, Creatinine 0.85 D, Estimated Creat Clear 40, Estimated GFR 65, Est GFR ( Amer) 78 D, Glucose 90 I & O for Last 24 hours: Intake & Output 01/29/18 01/30/18 01/31/18 02/01/18 11:59 11:59 11:59 11:59 Intake Total 371 / 371 1130 / 1130 3603 / 3603 Output Total 300 / 300 550 / 550 575 / 575 Balance 71 / 71 580 / 580 3028 / 3028 Weight 123 lb 8 oz 123 lb 8.012 oz Assessment and Plan (1) Hypernatremia Current visit: Yes Status: Acute Category: Medical Code(s): E87.0 - Hyperosmolality and hypernatremia (2) Fall Current visit: Yes Status: Acute Qualifiers: Encounter type: initial encounter Qualified Code(s): W19.XXXA - Unspecified fall, initial encounter Category: Medical Code(s): W19.XXXA - Unspecified fall, initial encounter (3) Urinary tract infection with pyuria Current visit: Yes Status: Acute Category: Medical Code(s): N39.0 - Urinary tract infection, site not specified - Assessment and plan all Dx Assessment and Plan for all problems:: She remains hypernatremic with sodium 169 this morning. She is also hypokalemic with potassium 2.8. Add 40 MEQ KCL to NS and continue at current rate. Urine culture showed E. Coli sensitive to cephalosporins. Continue rocephin infusions. Recheck bmp in the am
[2018-02-01 15:28] VITALS: BP 106/68; PULSE 97; RESP 18; TEMP 36.6; O2SAT 97
--- NOTE | 2018-02-01 18:57 | PC.NURSE ---
Pt is alert and oriented to self. Pt has not shown any nonverbal s/s of distress/pain. VSS. Afebrile. Lungs CTA. Heart rate reg. Abd soft and nontender /c active BS x4 quads. IV NS /c 20meq KCl infusing @ 150ml/hr via (R) AC site. No s/s of infiltration noted. Bilat knee high JEZ hose in place. Bed in low position, call boyle within reach. Will continue to monitor.
[2018-02-01 20:00] VITALS: BP 154/79; PULSE 90; RESP 18; TEMP 36.8; O2SAT 97
--- NOTE | 2018-02-02 00:10 | PC.NURSE ---
Patient in bed resting at t his time. Has rest better than previous night. Has not talked to self or yelled as much. Lungs are clear, resp even and nonlabored. Skin is intact, warm and dry. Has been incontinent of urine, no bm as of now. IV is patent. No needs at this time. No other changes since previous assessment. Bed locked in low position, side rails up x 2, safety is on. Call light in reach. Encouraged patient to call out for needs. Will Reinforce teaching,
[2018-02-02 04:00] VITALS: BP 168/77; PULSE 83; RESP 16; TEMP 36.6; O2SAT 91
[2018-02-02 06:39] LABS: Anion Gap 13.3 mEq/L (5-15); Blood Urea Nitrogen 16 mg/dL (7-18); Carbon Dioxide 22 mmol/L (21.0-32.0); Creatinine Clearance Estimated 40 mL/min (0-300); Creatinine,Serum 0.73 mg/dL (0.55-1.02); Estimated Glomerular Filt Rate 77 ml/min (>60); GFR (African American) 93 ML/MIN (>60); Glucose 69 mg/dL (74-106); Potassium 3.3 mmoL/L (3.5-5.1)
[2018-02-02 06:43] LABS: Chloride 133 mmol/L (98-107); Sodium 165 mmol/L (136-145)
--- NOTE | 2018-02-02 07:05 | HMH.ACPN2 ---
Internal Medicine - PN: Subj *Date: 02/02/18 *Time: 07:05 Interval history: Is a little bit more alert. Disoriented. Ate some sinus night per the nursing staff. Exam Vital signs and Labs for Last 24 Hours: Temp Pulse Resp BP Pulse Ox 97.8 F 83 16 168/77 91 L 02/02/18 04:00 02/02/18 04:00 02/02/18 04:00 02/02/18 04:00 02/02/18 04:00 Laboratory Results - last 24 hr 02/02/18 06:05: Sodium 165 H*, Potassium 3.3 L, Chloride 133 H, Carbon Dioxide 22, Anion Gap 13.3, BUN 16 D, Creatinine 0.73, Estimated Creat Clear 40, Estimated GFR 77, Est GFR ( Amer) 93, Glucose 69 L D I & O for Last 24 hours: Intake & Output 01/30/18 01/31/18 02/01/18 02/02/18 11:59 11:59 11:59 11:59 Intake Total 3178 / 3178 Balance 3178 / 3178 Narrative: Alert, minimally responsive, disoriented. Anterior lungs are clear. Heart rate regular. Abdomen soft. Sodium noted to have improved today to 165. Seems slightly improved. Assessment and Plan (1) Hypernatremia Current visit: Yes Status: Acute Category: Medical Code(s): E87.0 - Hyperosmolality and hypernatremia (2) Fall Current visit: Yes Status: Acute Qualifiers: Encounter type: initial encounter Qualified Code(s): W19.XXXA - Unspecified fall, initial encounter Category: Medical Code(s): W19.XXXA - Unspecified fall, initial encounter (3) Urinary tract infection with pyuria Current visit: Yes Status: Acute Category: Medical Code(s): N39.0 - Urinary tract infection, site not specified (4) Hypokalemia Current visit: Yes Status: Acute Category: Medical Code(s): E87.6 - Hypokalemia Hyponatremia somewhat improved. Continue current fluid rate and normal saline to slowly dilute her hypernatremia issues. Continue replacing hypokalemia issues in the IV fluid. Continue IV antibiotics.
--- NOTE | 2018-02-02 07:21 | PC.NURSE ---
REPORT GIVEN TO Ernestina CUEVA W/C
[2018-02-02 07:43] VITALS: BP 163/85; PULSE 86; RESP 18; TEMP 36.5; O2SAT 93
--- NOTE | 2018-02-02 08:01 | PC.NURSE ---
0715 - Received report from Gladis Ny RN
--- NOTE | 2018-02-02 10:01 | HMH.ACPN ---
Internal Medicine - PN: Subj *Date: 02/02/18 *Time: 10:01 Exam Vital signs and Labs for Last 24 Hours: Temp Pulse Resp BP Pulse Ox 97.7 F 86 18 163/85 93 L 02/02/18 07:43 02/02/18 07:43 02/02/18 07:43 02/02/18 07:43 02/02/18 07:43 Laboratory Results - last 24 hr 02/02/18 06:05: Sodium 165 H*, Potassium 3.3 L, Chloride 133 H, Carbon Dioxide 22, Anion Gap 13.3, BUN 16 D, Creatinine 0.73, Estimated Creat Clear 40, Estimated GFR 77, Est GFR ( Amer) 93, Glucose 69 L D I & O for Last 24 hours: Intake & Output 01/30/18 01/31/18 02/01/18 02/02/18 23:59 23:59 23:59 23:59 Intake Total 1368 / 3002 0 / 1810 Balance 1368 / 2752 1809 / 1809 Assessment and Plan (1) Hypernatremia Current visit: Yes Status: Acute Category: Medical Code(s): E87.0 - Hyperosmolality and hypernatremia (2) Fall Current visit: Yes Status: Acute Qualifiers: Encounter type: initial encounter Qualified Code(s): W19.XXXA - Unspecified fall, initial encounter Category: Medical Code(s): W19.XXXA - Unspecified fall, initial encounter (3) Urinary tract infection with pyuria Current visit: Yes Status: Acute Category: Medical Code(s): N39.0 - Urinary tract infection, site not specified (4) Hypokalemia Current visit: Yes Status: Acute Category: Medical Code(s): E87.6 - Hypokalemia The patient's infection will respond to the chosen ABx?: Yes Is the patient receiving the right drug, dose, and route?: Yes Could a more targeted ABx be ordered?: No (E COLI SUSCEPTIBLE TO ROCEPHIN)
[2018-02-02 15:44] VITALS: BP 150/87; PULSE 86; RESP 16; TEMP 36.6; O2SAT 99
--- NOTE | 2018-02-02 16:27 | DIET.NUTRFU ---
PO intakes remain poor, 0-25% avg. She requires total assistance with meals. Diet is pureed Honey thickened liquids and supplemented with thickened Ensure. Pt is currently unable to meet her nutritional needs. Glucose 69, potassium 3.3, sodium 165. Will continue to follow.
--- NOTE | 2018-02-02 19:19 | PC.NURSE ---
report given to jhoan khalil
[2018-02-02 20:00] VITALS: BP 140/84; PULSE 89; RESP 16; TEMP 36.9; O2SAT 98
[2018-02-03 04:00] VITALS: BP 136/58; PULSE 86; RESP 16; TEMP 36.5; O2SAT 95
--- NOTE | 2018-02-03 04:18 | PC.NURSE ---
PATIENT SLEPT ON AND OFF THIS SHIFT. PATIENT VERY DIFFICULT TO GET TO TAKE MEDICATIONS CRUSHED IN APPLESAUCE, HOWEVER PATIENT DID GET SOME OF THEM DOWN. PATIENT PLEASANTLY CONFUSED WHEN COMMUNICATING WITH STAFF. INCONTINENT OF BOWEL AND BLADDER. NO DOA OR DISTRESS. PATIENT DOES HAVE AN INFREQUENT DRY, HACKY COUGH. NO C/O OR S/S PAIN NOTED. PATIENT CURRENTLY IN BED ASLEEP. NO OTHER PROBLEMS NOTED AT THIS TIME. VSS. WILL CONTINUE TO MONITOR. SAFETY MEASURES IN PLACE, CALL LIGHT IN REACH.
[2018-02-03 06:47] LABS: Basophils % 0.2 % (0.1-2.0); Eosinophils # 0.3 K/mm3 (0.0-0.4); Eosinophils % 2.8 % (0.1-12.0); Hematocrit 39.7 % (37.0-47.0); Hemoglobin 12.3 g/dL (12.2-16.2); Lymphocytes # 1.5 K/mm3 (0.7-4.5); Lymphocytes % 14.2 K/mm3 (10-50); Mean Corpuscular Hemoglobin 31.7 pg (27.0-31.2); Mean Corpuscular Volume 102.1 fl (81-99); Monocytes # 0.6 K/mm3 (0.1-1.0); Neutrophils # 8.2 K/mm3 (1.8-7.8); Neutrophils % 76.7 % (37.0-80.0); Platelet Count 130 K/mm3 (142-424); Red Blood Count 3.89 M/mm3 (4.20-5.40); Red Cell Distribution Width 12.9 % (11.5-17.5); White Blood Count 10.6 K/mm3 (4.8-10.8)
[2018-02-03 06:49] LABS: Anion Gap 13.8 mEq/L (5-15); Blood Urea Nitrogen 12 mg/dL (7-18); Carbon Dioxide 21 mmol/L (21.0-32.0); Creatinine Clearance Estimated 40 mL/min (0-300); Creatinine,Serum 0.67 mg/dL (0.55-1.02); Estimated Glomerular Filt Rate 85 ml/min (>60); GFR (African American) 103 ML/MIN (>60); Glucose 62 mg/dL (74-106); Potassium 3.8 mmoL/L (3.5-5.1)
[2018-02-03 06:51] LABS: Chloride 129 mmol/L (98-107); Sodium 160 mmol/L (136-145)
--- NOTE | 2018-02-03 07:34 | PC.NURSE ---
REPORT GIVEN TO Smita LAURA RN; NOTIFIED HER OF PATIENT'S CRITICAL SODIUM AND THAT MD HAD BEEN PAGED BUT HAD NOT RETURNED CALL OF NOW. MD WAS PAGED ON PHONE GIVEN TO Smita LAURA RN.
[2018-02-03 07:39] VITALS: BP 97/70; PULSE 81; RESP 18; TEMP 36.4; O2SAT 97
--- NOTE | 2018-02-03 08:23 | HMH.ACPN2 ---
Internal Medicine - PN: Subj *Date: 02/03/18 *Time: 07:50 Interval history: No complaints, appear comfortable. More alert, confused at baseline. Rate and rhythm regular. No LE edema. Anterior lung clemons clear. Abdomen soft and nontender. Exam Vital signs and Labs for Last 24 Hours: Temp Pulse Resp BP Pulse Ox 97.5 F L 81 18 97/70 97 02/03/18 07:39 02/03/18 07:39 02/03/18 07:39 02/03/18 07:39 02/03/18 07:39 Laboratory Results - last 24 hr 02/03/18 06:00: WBC 10.6, RBC 3.89 L, Hgb 12.3, Hct 39.7, MCV 102.1 H, MCH 31.7 H, MCHC 31.0 L, RDW 12.9, Plt Count 130 L, MPV 11.0 H, Neut % (Auto) 76.7, Lymph % (Auto) 14.2, [place] % (Auto) 6.0, Eos % (Auto) 2.8, Baso % (Auto) 0.2, Neut # (Auto) 8.2 H, Lymph # (Auto) 1.5, [place] # (Auto) 0.6, Eos # (Auto) 0.3, Baso # (Auto) 0.0 02/03/18 06:00: Sodium 160 H*, Potassium 3.8, Chloride 129 H, Carbon Dioxide 21, Anion Gap 13.8, BUN 12, Creatinine 0.67, Estimated Creat Clear 40, Estimated GFR 85, Est GFR ( Amer) 103, Glucose 62 L I & O for Last 24 hours: Intake & Output 01/31/18 02/01/18 02/02/18 02/03/18 11:59 11:59 11:59 11:59 Intake Total 8 / 3178 2144 / 2144 Balance 317 / 3172144 / 2144 Assessment and Plan (1) Hypernatremia Current visit: Yes Status: Acute Category: Medical Code(s): E87.0 - Hyperosmolality and hypernatremia (2) Fall Current visit: Yes Status: Acute Qualifiers: Encounter type: initial encounter Qualified Code(s): W19.XXXA - Unspecified fall, initial encounter Category: Medical Code(s): W19.XXXA - Unspecified fall, initial encounter (3) Urinary tract infection with pyuria Current visit: Yes Status: Acute Category: Medical Code(s): N39.0 - Urinary tract infection, site not specified (4) Hypokalemia Current visit: Yes Status: Acute Category: Medical Code(s): E87.6 - Hypokalemia - Assessment and plan all Dx Assessment and Plan for all problems:: Mental status has returned to baseline with improvement of sodium. She has overall poor prognosis d/t her advanced dementia. Consult Hospice for evaluation.
--- NOTE | 2018-02-03 09:55 | SW/DCPLANNER ---
RECEIVED REFERRAL FOR THIS PATIENT FOR HOSPICE CONSULT...MS PEREZ IS A RESIDENT OF [facility] AND WILL BE RETURNING BACK THERE ON WEDNESDAY.. I HAVE ASKED HOSPICE TO REVIEW HER INFORMATION TO SEE IF SHE IS A CANDIDATE FOR THEIR SERVICES..
--- NOTE | 2018-02-03 13:49 | SW/DCPLANNER ---
HOSPICE NURSE CAME TODAY AND EVALUATED PATIENT AND SAID SHE IS MOST APPROPRIATE FOR THEIR SERVICES..PRIMO STATED SHE HAD MADE CONTACT WITH MS PEREZ SISTER AND THEY WILL MEET IN THE MORNING @ 10:00 TO GET HER ADMITTED FOR HOSPICE SERVICES... I HAVE CALLED TIFFANY AT [facility] AND THEY ARE AWARE MS PEREZ WILL BE COMING BACK WITH HOSPICE SERVICES...DISPOSITION IS FOR WEDNESDAY PENDING NOTHING ACUTE SHOULD HAPPEN TO PROHIBIT HER FROM GOING....
[2018-02-03 15:22] VITALS: BP 112/72; PULSE 80; RESP 20; TEMP 36.6; O2SAT 96
--- NOTE | 2018-02-03 17:41 | PC.NURSE ---
77 YEAR OLD WHITE FEMALE ADMITTED TO THE HOSPITAL WITH A DIAGNOSIS OF UTI AND WEAKNESS. HOSPICE EVALUATED TODAY AND THEY WILL MEET WITH HER SISTER TOMORROW AT APPROXIMATELY 1000AM. SHE HAS DONE FAIR TODAY WITH CONTINUOUS RAMBLING. SHE CONTINUES TO HAVE AN ELEVATED SODIUM LEVEL, TODAY THE LEVEL WAS 160. LUNGS ARE CTA, ORAL CARE HAS BEEN PROVIDED FREQUENTLY TODAY ALONG WITH POSITIONING. SHE HAS AN IV IN THE RAC AND HAS LACTATED RINGERS WITH POTASSIUM INFUSING PER ORDER. WE WILL CONTINUE TO MONITOR. MOHAN LAURA, MSN, RN
[2018-02-03 19:45] VITALS: O2SAT 99
[2018-02-03 20:00] VITALS: BP 140/77; PULSE 86; RESP 18; TEMP 36.3; O2SAT 99
[2018-02-04 04:00] VITALS: BP 174/89; PULSE 79; RESP 16; TEMP 36.7; O2SAT 98
--- NOTE | 2018-02-04 05:01 | PC.NURSE ---
PATIENT HAS SLEPT MORE THIS SHIFT THAN PREVIOUS 2 SHIFTS. EARLY IN SHIFT PATIENT WAS VERY RESTLESS AND RESISTIVE TO CARE. INCONTINENT OF BOWEL AND BLADDER. PATIENT CONTINUES WITH CONFUSION. CURRENTLY IN BED ASLEEP. NO OTHER PROBLEMS NOTED AT THIS TIME. VSS. WILL CONTINUE TO MONITOR.
[2018-02-04 07:45] LABS: Anion Gap 18.7 mEq/L (5-15); Blood Urea Nitrogen 10 mg/dL (7-18); Carbon Dioxide 18 mmol/L (21.0-32.0); Chloride 125 mmol/L (98-107); Creatinine Clearance Estimated 40 mL/min (0-300); Creatinine,Serum 0.63 mg/dL (0.55-1.02); Estimated Glomerular Filt Rate 91 ml/min (>60); GFR (African American) 110 ML/MIN (>60); Glucose 68 mg/dL (74-106); Potassium 3.7 mmoL/L (3.5-5.1)
[2018-02-04 07:47] LABS: Sodium 158 mmol/L (136-145)
[2018-02-04 07:49] VITALS: BP 168/86; PULSE 85; RESP 18; TEMP 36.3; O2SAT 97
[2018-02-04 08:00] VITALS: O2SAT 97
--- NOTE | 2018-02-04 08:12 | PC.NURSE ---
dr buckley notified that pt sodium is 158. pt blood cultures were also not drawn. states ok to not draw blood cultures.
--- NOTE | 2018-02-04 08:26 | HMH.DCSUM ---
General - General Admission date: 01/29/18 Discharge date: 02/04/18 HPI HPI: 77-year-old white female, long-term resident of local [place] [facility] who was brought to the emergency department with lethargy, mental status changes and had a fall at the [facility] where she apparently rolled out of bed. In the emergency department workup revealed unremarkable CT scan for age, leukocytosis, evidence of urinary tract infection and significant hyponatremia. She is admitted to hospital for IV antibiotics, correction of her hyponatremia and ongoing supportive care. Please note she is maintained a DNR status for many years. She suffers from severe dementia. Hospital Course Hospital Course: Patient was admitted to hospital, IV fluids were started. Patient's sodium levels did decline but incredibly slowly, and we were extremely cautious with fluid administration given high risk of cerebral edema if sodium levels were corrected too rapidly. She did improve from a mental status perspective with improvement of her sodium levels. Sodium level declined in a stepwise fashion down to 158 from a high of 170 Patient was found to have coli in her urine, sensitive to ceftriaxone. This was continued. Patient as noted above awoke slightly, was able to eat and drink with a great deal of assistance. Given her overall medical problems and significant problems eating and drinking and a high likelihood of recurrence of this hypernatremia issue hospice consultation was obtained. Hospice services interviewed patient and family, and they have agreed to accept patient for terminal care. Patient as a result, will be transferred back to her [facility] [facility] today with hospice care. She will maintain her DNR status. We will discontinue IV fluids. Her diet will be liberalized from her current restricted/thickened liquid diet to ad tushar. diet. She will be on comfort medications only as she has finished up enough antibiotics for UTI. Objective Vital signs: Temp Pulse Resp BP Pulse Ox 97.4 F L 85 18 168/86 97 02/04/18 07:49 02/04/18 07:49 02/04/18 07:49 02/04/18 07:49 02/04/18 07:49 Narrative: Patient is more alert on admission, responsive, complains that she wants to drink water. Lungs have rhonchi bilaterally, heart rate is regular. She continues to look somewhat dehydrated. Continues to be relatively confused. No skin breakdown. But poor skin turgor. Results Labs on day of discharge: Labs from last 24 hours 02/04/18 06:28 Sodium 158 H* Potassium 3.7 Chloride 125 H Carbon Dioxide 18 L Anion Gap 18.7 H BUN 10 Creatinine 0.63 Estimated Creat Clear 40 Estimated GFR 91 Est GFR ( Amer) 110 Glucose 68 L DS: Diagnosis - Discharge Diagnosis (1) Hypernatremia Status: Acute (2) Fall Status: Acute (3) Urinary tract infection with pyuria Status: Acute (4) Hypokalemia Status: Acute Discharge Plan - Patient Discharge Instructions ACTIVITY: Limited activity DIET: regular diet - Follow up Plan Follow up with: Donna Guzman APRN [Nurse Practitioner] - 2 weeks Disposition: Hospice - Medical Facility Home Medications: Home Medications Medication Instructions Recorded Confirmed Type Bisacodyl [Dulcolax 5mg Tablet] 10 mg PO HS 01/29/18 01/30/18 History Citalopram Hydrobromide [Celexa 20 mg PO DAILY 01/29/18 01/30/18 History 20mg Tablet] Levothyroxine Sodium 150 mcg PO DAILY 01/29/18 01/29/18 History [Levothyroxine 150mcg (0.15mg) Tab] Metoprolol Tartrate [Lopressor 12.5 mg PO BID 01/29/18 01/29/18 History 25mg tablet] Quetiapine Fumarate [Quetiapine 25 mg PO DAILY 01/29/18 01/29/18 History Fumarate] Quetiapine Fumarate [Quetiapine 50 mg PO HS 01/29/18 01/29/18 History Fumarate] Sennosides [Senokot 8.6mg tablet] 8.6 mg PO DAILY 01/29/18 01/29/18 History Tramadol HCl [Ultram 50mg 50 mg PO TID 01/29/18 01/29/18 History tablet] Jazmine
--- NOTE | 2018-02-04 08:29 | P.DS_ITS ---
General - General Admission date: 01/29/18 Discharge date: 02/04/18 HPI HPI: 77-year-old white female, long-term resident of local custodial who was brought to the emergency department with lethargy, mental status changes and had a fall at the custodial where she apparently rolled out of bed. In the emergency department workup revealed unremarkable CT scan for age, leukocytosis, evidence of urinary tract infection and significant hyponatremia. She is admitted to hospital for IV antibiotics, correction of her hyponatremia and ongoing supportive care. Please note she is maintained a DNR status for many years. She suffers from severe dementia. Hospital Course Hospital Course: Patient was admitted to hospital, IV fluids were started. Patient's sodium levels did decline but incredibly slowly, and we were extremely cautious with fluid administration given high risk of cerebral edema if sodium levels were corrected too rapidly. She did improve from a mental status perspective with improvement of her sodium levels. Sodium level declined in a stepwise fashion down to 158 from a high of 170 Patient was found to have coli in her urine, sensitive to ceftriaxone. This was continued. Patient as noted above awoke slightly, was able to eat and drink with a great deal of assistance. Given her overall medical problems and significant problems eating and drinking and a high likelihood of recurrence of this hypernatremia issue hospice consultation was obtained. Hospice services interviewed patient and family, and they have agreed to accept patient for terminal care. Patient as a result, will be transferred back to her custodial today with hospice care. She will maintain her DNR status. We will discontinue IV fluids. Her diet will be liberalized from her current restricted/thickened liquid diet to ad tushar. diet. She will be on comfort medications only as she has finished up enough antibiotics for UTI. Objective Vital signs: Temp Pulse Resp BP Pulse Ox 97.4 F L 85 18 168/86 97 02/04/18 07:49 02/04/18 07:49 02/04/18 07:49 02/04/18 07:49 02/04/18 07:49 Narrative: Patient is more alert on admission, responsive, complains that she wants to drink water. Lungs have rhonchi bilaterally, heart rate is regular. She continues to look somewhat dehydrated. Continues to be relatively confused. No skin breakdown. But poor skin turgor. Results Labs on day of discharge: Labs from last 24 hours 02/04/18 06:28 Sodium 158 H* Potassium 3.7 Chloride 125 H Carbon Dioxide 18 L Anion Gap 18.7 H BUN 10 Creatinine 0.63 Estimated Creat Clear 40 Estimated GFR 91 Est GFR ( Amer) 110 Glucose 68 L DS: Diagnosis - Discharge Diagnosis (1) Hypernatremia Status: Acute (2) Fall Status: Acute (3) Urinary tract infection with pyuria Status: Acute (4) Hypokalemia Status: Acute Discharge Plan - Patient Discharge Instructions ACTIVITY: Limited activity DIET: regular diet - Follow up Plan Follow up with: Donna Guzman APRN [Nurse Practitioner] - 2 weeks Disposition: Hospice - Medical Facility Home Medications: Home Medications Medication Instructions Recorded Confirmed Type Bisacodyl [Dulcolax 5mg Tablet] 10 mg PO HS 01/29/18 01/30/18 History
== END 2018-02-04 12:05 | disposition hospice, inpatient (51) | DRG 690 ==
LOC: ER 16:50 → 2ND 17:07
PROVIDERS: Nurse Practitioner Family; Admitting Provider Emergency Medicine; Emergency Provider Emergency Medicine; PCP Internal Medicine Adolescent Medicine; Visit Provider Internal Medicine Adolescent Medicine
DX: N39.0 Urinary tract infection, site not specified (principal); E87.0 Hyperosmolality and hypernatremia; E87.6 Hypokalemia; I10 Essential (primary) hypertension; I25.2 Old myocardial infarction; B96.20 Unspecified Escherichia coli [E. coli] as the cause of diseases classified elsewhere; E78.5 Hyperlipidemia, unspecified; Z91.81 History of falling
CPT/HCPCS: 36415; 70450; 71045; 72125; 80048; 80053; 81001; 83605; 84484; 85007; 85025; 87086; 87088; 87186; 87275; 87276; 87430; 92610; 93005; 96365; 96366; 99284; 99285; G0378

== ENCOUNTER → 2018-04-01 16:39 | Outpatient (REF) | payer MEDICARE, BC, SELFPAY ==
[2018-04-01 17:04] LABS: Microscopic, Urine URINE MICROSCOPIC (MICROSCOPIC)
[2018-04-01 18:01] LABS: Appearance,Urine TURBID (Clear); Bilirubin,Urine Negative (Negative); Blood, Urine 2+ (Negative); Color,Urine YELLOW (Yellow); Glucose,Urine (UA) Negative (Negative); Ketones,Urine Negative (Negative); Leukocyte Esterase,Urine 3+ (Negative); Nitrate,Urine POSITIVE (Negative); Protein,Urine 1+ (Negative); Specific Gravity, Urine >= 1.030 (1.005-1.030); Urobilinogen,Urine 0.2 EU/dl (0.2)
[2018-04-01 18:21] LABS: Bacteria,Urine 4+ /lpf; Squamous Epithelial Cell,Urine Occasional #/hpf (0-5); WBC,Urine TNTC #/hpf (0-3)
== END ==
LOC: LAB 16:39
PROVIDERS: Visit Provider Internal Medicine Adolescent Medicine
DX: N39.0 Urinary tract infection, site not specified (principal)
CPT/HCPCS: 81001; 87086; 87088; 87186